=== PATIENT | male | born 1965 | race Caucasian/White ===

== ENCOUNTER 2021-06-26 15:55 | Emergency (ER) | payer BC, SELFPAY ==
[2021-06-26 15:56] VITALS: BP 188/97; PULSE 87; RESP 20; TEMP 36.7; O2SAT 100
[2021-06-26 18:45] VITALS: BP 138/95; PULSE 76; RESP 19; TEMP 36.8; O2SAT 100
[2021-06-26 19:02] VITALS: BP 138/95; PULSE 78; RESP 22; O2SAT 99
[2021-06-26 19:31] VITALS: BP 148/98; PULSE 73; RESP 23; O2SAT 98
--- NOTE | 2021-06-26 19:35 | ECG_ITS ---
Measurements Intervals [place] Rate: 65 P: 54 IL: 145 QRS: 29 QRSD: 101 T: 12 QT: 376 QTc: 393 Interpretive Statements SINUS RHYTHM INCOMPLETE RIGHT BUNDLE BRANCH BLOCK BORDERLINE ST-T WAVE ABNORMALITY- INFERIOR LEADS BORDERLINE ECG Electronically Signed On 06-26-2021 20:52:49 [employer] by Chucho Gamino D.O.
[2021-06-26 19:57] VITALS: BP 133/100; PULSE 73; RESP 18; O2SAT 97
[2021-06-26 20:05] LABS: Basophils Absolute Auto 0.1 K/mm3 (0.0-0.1); Basophils Percent Auto 0.6 % (0.2-1.2); Eosinophils Absolute Auto 0.2 K/mm3 (0-0.3); Eosinophils Percent Auto 2.2 % (0-4.4); Hemoglobin 13.2 g/dL (14.0-18.0); Immature Granulocyte Absolute 0.02 K/mm3 (0.00-0.031); Immature Granulocyte Percent A 0.2 % (0-0.5); Lymphocytes Absolute Auto 2.23 K/mm3 (0.9-3.2); Lymphocytes Percent Auto 26.8 % (18.3-44.2); Mean Corpuscular HGB Conc 33.8 g/dl (32-36); Mean Corpuscular Hemoglobin 31.4 pg (26-34); Mean Corpuscular Volume 92.6 fl (80-100); Mean Platelet Volume 9.7 fl (7.4-10.4); Monocytes Absolute Auto 0.5 K/mm3 (0.1-0.6); Monocytes Percent Auto 5.9 % (2.6-8.5); Neutrophils Absolute Auto 5.4 K/mm3 (1.3-6.7); Neutrophils Percent Auto 64.3 % (45.5-73.1); Platelet Count Result 180 k/mm3 (150-375); Red Blood Count 4.21 M/mm3 (4.6-6.20); Red Cell Distribution Width 12.8 % (11.5-14.5); White Blood Count 8.3 K/mm3 (4.5-10.0)
[2021-06-26 20:14] LABS: Add Urine Microscopic? NO; Appearance Urine Clear (Clear); Bilirubin Urine Negative (Negative); Blood Urine Negative (Negative); Color Urine Straw (Yellow); Glucose Urine UA Negative (Negative); Ketones Urine Negative (Negative); Leukocyte Esterase Ur Negative LEU/UL (Negative); Nitrate Urine Negative (Negative); Protein Urine Negative (Negative); Specific Grav Ur 1.009 (1.001-1.035); Urobilinogen Urine Negative mg/dL (<2.0)
[2021-06-26 20:18] LABS: Alanine Aminotransferase 17 U/L (4-50); Albumin Level 4.3 g/dL (3.5-5.1); Alkaline Phosphatase 78 U/L (38-126); Anion Gap 7 mmol/L (8-16); Aspartate Amino Transferase 26 U/L (17-59); Bilirubin,Total 0.3 mg/dL (0.2-1.3); Blood Urea Nitrogen 12 mg/dL (9-20); Calcium 9.1 mg/dL (8.4-10.2); Carbon Dioxide 29 mmol/L (22-30); Chloride 106 mmol/L (98-107); Estimated CRCL calculation 91 ml/min; Estimated Glomerular Filt Rate > 60; Glucose 106 mg/dL (65-110); Potassium 4.1 mmol/L (3.4-5.0); Sodium 142 mmol/L (137-145)
--- NOTE | 2021-06-26 20:18 | ED.RECABL ---
HPI - Recheck/Abnormal Lab/Rx General Chief Complaint: Recheck/Abnormal Lab/Rx Stated Complaint: HTN Time Seen by Provider: 06/26/21 19:11 Source: patient and RN notes reviewed Mode of arrival: ambulatory Limitations: no limitations History of Present Illness HPI narrative: This is a 55 year old male who presents for evaluation of high blood pressure. Patient reports earlier this afternoon he felt like his blood pressure was high. He reports head pressure and felt slight light headed when bent over. He denies headache, nausea, vomiting, blurred vision, chest pain or shortness of breath. He checked his blood pressure approximately 4 times from 230 pm to 330 pm. His blood pressure ranged from 140s/100 and increased after each time he checked it. His last BP at 330 was 180 systolic. He denies any symptoms in ER. His blood pressure has decreased to 130s/80s. He denies previous history of hypertension. He does report increased stress at home recently. Denies significant amount of caffeine. HE denies any supplements. Related Data Allergies Allergy/AdvReac Type Severity Reaction Status Date / Time No Known Allergies Allergy Verified 06/26/21 19:07 Review of Systems Review of Systems: All systems reviewed & are unremarkable except as noted in HPI and below Constitutional: Constitutional: Denies fever(s) and Denies weakness Eyes: Eyes: Denies change in vision and Denies photophobia ENT: Denies nasal congestion Cardiovascular: Cardiovascular: Denies chest pain and Denies radiating jaw, neck or arm pain Respiratory: Respiratory: Denies cough and Denies dyspnea Gastrointestinal: Gastrointestinal: Denies abdominal pain, Denies diarrhea, Denies nausea and Denies vomiting [facility] Past Medical History Medical History (Updated 06/27/21 @ 00:00 by Kandace Lemon) Anxiety Family History Family History (Updated 11/25/15 @ 23:21 by DOCTOR UNKNOWN) Mother Patient's mother is in good health Father Patient's father is in good health Social History Social History (Updated 06/26/21 @ 20:22 by Libertad Bishop MD) Smoking status: Never smoker Exam Const: General: no acute distress and alert Orientation/consciousness: patient oriented x3 Eyes: Pupils: Equal, round and reactive pupils present EOM: EOMs intact bilaterally Chest: Chest palpation & inspection: normal inspection of the chest Resp: Effort & Inspection: normal respiratory effort and no retractions Auscultation: clear to auscultation bilaterally Cardio: Rate: regular rate Rhythm: regular rhythm Heart sounds: no murmurs GI: GI Palp: Yes Soft to palpation, No Tenderness to palpation present (GI) and No Guarding due to palpation present (GI) Auscultation: normal bowel sounds Skin: General skin exam: normal color Rashes: no rashes Neuro: General: patient oriented x3, moves all extremities and CN's II-XI intact bilaterally Psych: Mental Status: mental status grossly normal Affect: normal affect Course Reevaluation(s) Reevaluation #1: Patient's BP is 131/95. Patient is asymptomatic. I discussed discharge plan and follow up with PCP. Will start low dose lisinopril as BP has been running 14-/130s with diastolic greater than 90 Date: 06/26/21 Time: 20:34 Vital Signs Vital signs: Vital Signs Temperature 98.0 F 06/26/21 15:56 Pulse Rate 87 06/26/21 15:56 Respiratory Rate 20 06/26/21 15:56 Blood Pressure 188/97 H 06/26/21 15:56 Pulse Oximetry 100 06/26/21 15:56 Temperature 98.2 F 06/26/21 18:45 Pulse Rate 62 06/26/21 20:53 Respiratory Rate 18 06/26/21 20:53 Blood Pressure 133/96 H 06/26/21 20:53 Pulse Oximetry 100 06/26/21 20:53 MDM - Recheck/Abnormal Lab/Rx Lab Data Attestation: I reviewed the patient's lab results. Result diagrams: 06/26/21 19:55 06/26/21 19:55 Labs: Lab Results 06/26/21 06/26/21 06/26/21 Range/Units 19:55 19:55 19:55 WBC 8.3 (4.5-
[2021-06-26 20:53] VITALS: BP 133/96; PULSE 62; RESP 18; O2SAT 100
== END 2021-06-26 20:55 | disposition home or self-care (01) ==
PROVIDERS: Emergency Provider General Practice
DX: I10 Essential (primary) hypertension (principal); I45.10 Unspecified right bundle-branch block; R94.31 Abnormal electrocardiogram [ECG] [EKG]
CPT/HCPCS: 36415; 80053; 81003; 85025; 93005; 99283